=== PATIENT | female | born 1960 | race Caucasian/White ===

== ENCOUNTER 2017-04-01 18:08 | Emergency (ER) | payer SELFPAY ==
[~2017-04-01] VITALS: Ht 157.5 cm; Wt 70.9 kg
[2017-04-01 18:15] VITALS: BP 177/103; PULSE 82; RESP 15; TEMP 99.2; O2SAT 96
[2017-04-01 19:00] VITALS: BP 149/89; PULSE 76; RESP 16; O2SAT 97
[2017-04-01] MEDS ORDERED: HYDR-3533 PO (19:50)
[2017-04-01] MEDS ORDERED: CYCL1TAB29 PO (19:50)
[2017-04-01] MEDS ORDERED: IBUP400T20 PO (19:50)
--- NOTE | 2017-04-01 19:50 | PD ---
HPI Chief Complaint: Musculoskeletal Complaint Time Seen by Provider: 19:22 Travel History International Travel<30 days: No Contact w/Intl Traveler<30days: No Traveled to known affect area: No History of Present Illness HPI The patient is a 56-year-old female who complains of pain starting around the left buttocks and radiating down to the left lower leg. On Thursday she was pulling carpet. Thursday she woke up and had severe back pain radiating down her left leg. She denies any numbness or weakness of the left leg. She denies any chest pain or shortness of breath. Because the left calf had pain she was worried about a blood clot. She denies any bladder or bowel dysfunction. She has no tenderness over the left calf. There is no swelling over the left calf. She has never had a blood clot before. She particularly has pain when she sits in a chair putting pressure on the left buttocks. She states she does have muscle spasm and has been taking ibuprofen without relief. The pain as a burning pain and a 9/10 in the left buttocks and down the left leg. [facility] Past Medical History Medical History: Denies Significant Hx Tetanus Vaccination: > 5 Years Influenza Vaccination: No ?: Not LMP: [employer] Past Surgical History Hysterectomy: Yes Social History Alcohol Use: Yes Tobacco Use: Yes Substance Use: No Allergies-Medications (Allergen,Severity, Reaction): Coded Allergies: Cipro (Verified Allergy, Unknown, 04/01/17) Reported Meds & Prescriptions Reported Meds & Active Scripts Active No Active Prescriptions or Reported Medications Review of Systems Except as stated in HPI: all other systems reviewed are Neg Physical Exam Narrative GENERAL: The patient is alert, oriented 3 in moderate apparent distress with her left calf pain. Her vital signs show blood pressure 177/103 but otherwise normal. SKIN: Focused skin assessment warm/dry. HEAD: Atraumatic. Normocephalic. EYES: Pupils equal and round. No scleral icterus. No injection or drainage. ENT: No nasal bleeding or discharge. Mucous membranes pink and moist. NECK: Trachea midline. No JVD. CARDIOVASCULAR: Regular rate and rhythm. No murmur appreciated. RESPIRATORY: No accessory muscle use. Clear to auscultation. Breath sounds equal bilaterally. GASTROINTESTINAL: Abdomen soft, non-tender, nondistended. Hepatic and splenic margins not palpable. MUSCULOSKELETAL: No obvious deformities. No clubbing. No cyanosis. No edema. There is tenderness to direct palpation around the sciatic nerve in the left buttocks near the sacrum on the left. I cannot reproduce the radiation of pain by putting pressure on this area. Straight leg raising is normal and deep tendon reflexes are +2 bilaterally both patella and Achilles and pinprick is normal. No swelling is noted in the calf, Homans sign is negative and no cord is palpated in the calf. There is no tenderness in the calf. NEUROLOGICAL: Awake and alert. No obvious cranial nerve deficits. Motor grossly within normal limits. Normal speech. PSYCHIATRIC: Appropriate mood and affect; insight and judgment normal. Data Data Last Documented VS Vital Signs Date Time Temp Pulse Resp B/P Pulse Ox O2 Delivery O2 Flow Rate FiO2 04/01/17 19:00 76 16 149/89 97 Room Air 04/01/17 18:15 99.2 [facility] Medical Decision Making Medical Screen Exam Complete: Yes Emergency Medical Condition: Yes Medical Record Reviewed: Yes Differential Diagnosis Sciatic nerve pain, DVTunlikely, herniated nucleus pulposus Narrative Course The patient appears to have sciatic nerve pain. She will be prescribed Motrin 600 mg 3 times daily, Flexeril and Lortab 5 for pain. She should not drink alcohol or drive on the Flexeril or Lortab 5. She should follow-up with her primary care physician next week. Diagnosis Primary Impression: Left sciatic nerve pain Med/Other Pt SpecificInfo: Prescription(s) given Scripts Hydrocodone-Acetaminophen (Lortab)5-325 Mg Tab1 Tab PO Q4H PRN (PAIN) #30 TAB Ref 0 Prov:Rafael Thibodeaux MD 04/01/17 Cyclobenzaprine (Flexeril)10 Mg Tab10 Mg PO TID #30 TAB Ref 0 Prov:Rafael Thibodeaux MD 04/01/17 Ibuprofen 400 Mg [id number] Mg PO TID #44 TAB Ref 0 Prov:Rafael Thibodeaux MD 04/01/17 Disposition: 01 DISCHARGE HOME Condition: Stable Rafael Thibodeaux MD April 01, 2017 19:50
[2017-04-01] MEDS ORDERED: KETOROLAC TROMETHAMINE 60 MG/2 ML (IM) VIAL IM ONE (20:00)
[2017-04-01] MEDS ORDERED: ORPHENADRINE INJ 60 MG/2 ML AMP IM ONE (20:00)
[2017-04-01 20:02] VITALS: BP 169/94; PULSE 74; RESP 16; O2SAT 95
== END 2017-04-01 20:37 | disposition home or self-care (01) ==
LOC: PHED 18:08
DX: M54.32 Sciatica, left side (principal); Z72.0 Tobacco use
CPT/HCPCS: 96372; 99284; J1885; J2360

== ENCOUNTER 2017-07-26 10:00 | Inpatient (IN) | payer OTHER ==
[2017-07-26] VITALS (10 sets, daily range): BP systolic 163–202; BP diastolic 88–104; PULSE 65–78; RESP 16–22; TEMP 97.4–98.9; O2SAT 95–97
[~2017-07-26 10:00] MED LIST: CYCL1TAB29 PO; HYDR-3533 PO; IBUP400T20 PO
[2017-07-26] MEDS ORDERED: SODIUM CHLOR 0.9% 1000 ML INJ 1,000 ML IV ONE (10:14)
[2017-07-26] MEDS ORDERED: SODIUM CHLORIDE 0.9% FLUSH 10 ML FLUSH IVF PRN (10:15)
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
[2017-07-26 10:31] LABS: BLOOD, URINE NEG (NEG); GLUCOSE,URINE NEG (NEG); KETONE, URINE NEG (NEG); NITRITE,URINE NEG (NEG)
[2017-07-26 10:32] LABS: METHOD OF COLLECTION CATH; URINE COLOR STRAW (YELLW/STRAW)
[2017-07-26 10:33] LABS: AUTOMATED NEUTROPHIL # 3.5 TH/MM3 (1.8-7.7); BASOPHIL # 0.1 TH/MM3 (0-0.2); EOSINOPHIL # 0.3 TH/MM3 (0-0.4); EOSINOPHIL % 5.1 % (0.0-4.0); HEMO FLAGS DIFF FINAL; LYMPHOCYTE # 1.4 TH/MM3 (1.0-4.8); MEAN CELL VOLUME 97.4 FL (80.0-100.0); MEAN CORPUSCULAR HEMOGLOBIN 32.3 PG (27.0-34.0); MEAN CORPUSCULAR HGB CONC 33.2 % (32.0-36.0); MONO % 6.2 % (0.0-8.0); NEUT % 62.7 % (16.0-70.0); PLATELET COUNT 171 TH/MM3 (150-450); RED BLOOD COUNT 4.32 MIL/MM3 (4.00-5.30); RED CELL DISTRIBUTION WIDTH 11.6 % (11.6-17.2); WHITE BLOOD COUNT 5.6 TH/MM3 (4.0-11.0)
[2017-07-26 10:35] LABS: SQUAMOUS EPITHELIAL CELL URINE 0-5 /hpf (0-5)
[2017-07-26 10:37] LABS: CHLORIDE 103 MEQ/L (98-107); POTASSIUM 3.5 MEQ/L (3.5-5.1); SODIUM (NA) 139 MEQ/L (136-145)
[2017-07-26 10:41] LABS: ANION GAP 13 MEQ/L (5-15); APTT (PATIENT) 27.4 SEC (24.3-30.1); BICARBONATE 23.4 MEQ/L (21.0-32.0); BLOOD UREA NITROGEN 5 MG/DL (7-18); MAGNESIUM 1.9 MG/DL (1.5-2.5); PROTHROMBIN TIME - PATIENT 11.6 SEC (9.8-11.6)
[2017-07-26 10:43] LABS: ALCOHOL 56 MG/DL (0-5)
[2017-07-26 10:44] LABS: GLOMERULAR FILTRATION RATE 159 ML/MIN (>89)
[2017-07-26 10:45] LABS: AST (GOT) 86 U/L (15-37); TOTAL BILIRUBIN ADULT 0.6 MG/DL (0.2-1.0)
[2017-07-26 10:47] LABS: ALKALINE PHOSPHATASE 68 U/L (45-117); CREATINE KINASE 268 U/L (26-192)
--- NOTE | 2017-07-26 10:47 | RADRPT ---
EXAM DATE/TIME: 07/26/2017 10:22 [facility] COMPARISON: No previous studies available for comparison. INDICATIONS : Left upper chest pain from yesterday am, also has numbness and tingling left side arm, hand fingers MEDICAL HISTORY : None. SURGICAL HISTORY : None. ENCOUNTER: Initial ACUITY: 2 days PAIN SCORE: 3/10 LOCATION: Left upper chest FINDINGS: A single view of the chest demonstrates the lungs to be symmetrically aerated without evidence of mas s, infiltrate or effusion. The cardiomediastinal contours are unremarkable. Osseous structures are intact. CONCLUSION: No acute disease. Dami Vo MD on July 26, 2017 at 10:45 Board Certified Radiologist. This report was verified electronically.
[2017-07-26 10:57] LABS: ALT (GPT) 79 U/L (10-53)
[2017-07-26 10:58] LABS: CKMB 3.5 NG/ML (0.5-3.6)
--- NOTE | 2017-07-26 11:28 | RADRPT ---
EXAM DATE/TIME: 07/26/2017 10:31 [facility] COMPARISON: No previous studies available for comparison. INDICATIONS : Generalized weakness. Left upper and lower extremity numbness since yesterday. RADIATION DOSE: 59.20 CTDIvol (mGy) MEDICAL HISTORY : None SURGICAL HISTORY : Hysterectomy. ENCOUNTER: Initial ACUITY: 2 days PAIN SCALE: 0/10 LOCATION: cranial TECHNIQUE: Multiple contiguous axial images were obtained of the head. Using automated exposure control and adj ustment of the mA and/or kV according to patient size, radiation dose was kept as low as reasonably a chievable to obtain optimal diagnostic quality images. DICOM format image data is available electro nically for review and comparison. FINDINGS: CEREBRUM: The ventricles are normal for age. There is low density at the right anterior limb of the internal ca psule and the right centrum semiovale white matter. No evidence of midline shift, mass lesion, or hem orrhage. No extra-axial fluid collections are seen. POSTERIOR FOSSA: The cerebellum and brainstem are intact. The 4th ventricle is midline. The cerebellopontine angle i s unremarkable. EXTRACRANIAL: The visualized portion of the orbits is intact. SKULL: The calvaria is intact. No evidence of skull fracture. CONCLUSION: Small areas of low density at the right anterior limb of the internal capsule and right centrum semio thor. Recent small infarcts could have this appearance. No hemorrhage or significant mass effect is s een. Dami Vo MD on July 26, 2017 at 11:23 Board Certified Radiologist. This report was verified electronically.
[2017-07-26] MEDS ORDERED: ASPIRIN 325 MG TAB PO ONE (11:45)
--- NOTE | 2017-07-26 12:40 | EKG ---
Date Performed: 07/26/2017 Time Performed: 10:09:22 PTAGE: 57 years EKG: Sinus rhythm NORMAL ECG NO PREVIOUS TRACING DOCTOR: Denilson Page Interpretating Date/Time 07/26/2017 12:39:18
[2017-07-26] MEDS ORDERED: NITROGLYCERIN 0.4 MG SL 25 TABS/BTL SL PRN (16:00)
[2017-07-26] MEDS ORDERED: ACETAMINOPHEN 500 MG CPLT PO PRN (16:00)
[2017-07-26] MEDS ORDERED: MORPHINE SULFATE 4 MG/ML INJ IV PUSH PRN (16:00)
[2017-07-26] MEDS ORDERED: DEXTROSE 50% IN WATER 50 ML VIAL(D50) IV PUSH PRN (16:00)
[2017-07-26] MEDS ORDERED: ENALAPRILAT 1.25 MG/ML VIAL IV PRN (16:00)
[2017-07-26] MEDS ORDERED: SODIUM CHLORIDE 0.9% FLUSH 10 ML FLUSH IV FLUSH PRN (16:00)
[2017-07-26] MEDS ORDERED: ACETAMINOPHEN/HYDROcodone 325 MG/7.5 MG TAB PO PRN (16:00)
[2017-07-26] MEDS ORDERED: GLUCAGON 1 MG/ML VIAL OTHER PRN (16:00)
[2017-07-26] MEDS: INSULIN ASPART SUPPLEMENTAL SCALE SQ SCH ×2 (17:00→21:00)
[2017-07-26 17:15] LABS: CREATINE KINASE 209 U/L (26-192)
[2017-07-26 17:27] LABS: CKMB 2.5 NG/ML (0.5-3.6)
--- NOTE | 2017-07-26 18:02 | RADRPT ---
EXAM DATE/TIME: 07/26/2017 17:24 [facility] COMPARISON: No previous studies available for comparison. INDICATIONS : Cerebrovascular accident, left sided weakness. MEDICAL HISTORY : Left sided weakness. SURGICAL HISTORY : Hysterectomy. ENCOUNTER: Initial ACUITY: 1 day PAIN SCORE: 0/10 LOCATION: Bilateral neck PEAK SYSTOLIC VELOCITIES (cm/sec): ICA/CCA RATIO: Right: 1.2 Left: 1.2 ICA: Right: 116 Left: 134 CCA: Right: 93 Left: 110 ECA: Right: 97 Left: 80 VERTEBRAL: Right: 48 antegrade Left: 80 antegrade Elevated flow velocities and ICA/CCA ratios have been found to correlate with increased degrees of vessel stenosis, calculated as percentage of diameter relative to a normal segment of distal ICA/CCA FINDINGS: RIGHT CAROTID: Mild eccentric calcified plaque with resultant mild, less than 50%, stenosis. LEFT CAROTID: Mild calcified plaque with resultant mild, less than 50%, stenosis. VERTEBRAL ARTERIES: Antegrade flow is seen in both vertebral arteries. MISCELLANEOUS: None. CONCLUSION: 1. Mild bilateral carotid plaque with resultant mild, less than 50%, stenosis. 2. Antegrade vertebral artery flow bilaterally. Toribio Crisostomo MD on July 26, 2017 at 17:58 Board Certified Radiologist. This report was verified electronically.
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
[2017-07-26] MEDS: LISINOPRIL 5 MG TAB PO SCH (18:43)
[2017-07-26] MEDS: PANTOPRAZOLE SOD 40 MG DELAYED RELEASE TAB PO SCH (18:43)
[2017-07-26] MEDS: ALPRAZolam 0.25 MG TAB PO PRN (18:43)
--- NOTE | 2017-07-26 19:12 | EKG ---
Date Performed: 07/26/2017 Time Performed: 16:22:37 PTAGE: 57 years EKG: Sinus rhythm NORMAL ECG PREVIOUS TRACING : 07/26/2017 10.09 No significant change from previous tracing noted. DOCTOR: Denilson Page Interpretating Date/Time 07/26/2017 19:11:34
[2017-07-26] MEDS: SODIUM CHLORIDE 0.9% FLUSH 10 ML FLUSH IV FLUSH SCH (21:00)
[2017-07-26] MEDS: METOPROLOL TARTRATE 25 MG TAB PO SCH (21:35)
[2017-07-26] MEDS: ATORVASTATIN 10 MG TAB PO SCH (21:35)
[2017-07-26 23:05] LABS: CREATINE KINASE 160 U/L (26-192)
[2017-07-26] MEDS: TEMAZEPAM 15 MG CAP PO PRN (23:37)
[2017-07-27] VITALS (9 sets, daily range): BP systolic 139–162; BP diastolic 88–105; PULSE 67–77; RESP 16–20; TEMP 95.6–99.5; O2SAT 95–98
--- NOTE | 2017-07-27 06:49 | EKG ---
Date Performed: 07/26/2017 Time Performed: 22:05:36 PTAGE: 57 years EKG: Sinus rhythm SEPTAL MYOCARDIAL INFARCTION ABNORMAL ECG PREVIOUS TRACING : 07/26/2017 16.22 No significant change from previous tracing noted. DOCTOR: Denilson Page Interpretating Date/Time 07/27/2017 06:48:43
[2017-07-27 07:07] LABS: BASOPHIL # 0.1 TH/MM3 (0-0.2); EOSINOPHIL # 0.3 TH/MM3 (0-0.4); EOSINOPHIL % 4.5 % (0.0-4.0); HEMATOCRIT 38.9 % (35.0-46.0); HEMO FLAGS DIFF FINAL; LYMPH % 25.2 % (9.0-44.0); LYMPHOCYTE # 1.6 TH/MM3 (1.0-4.8); MEAN CORPUSCULAR HEMOGLOBIN 33.3 PG (27.0-34.0); MEAN CORPUSCULAR HGB CONC 34.7 % (32.0-36.0); MONO % 7.1 % (0.0-8.0); NEUT % 62.2 % (16.0-70.0); PLATELET COUNT 155 TH/MM3 (150-450); RED BLOOD COUNT 4.06 MIL/MM3 (4.00-5.30); RED CELL DISTRIBUTION WIDTH 11.4 % (11.6-17.2); WHITE BLOOD COUNT 6.5 TH/MM3 (4.0-11.0)
[2017-07-27 07:27] LABS: POTASSIUM 3.8 MEQ/L (3.5-5.1)
[2017-07-27 07:32] LABS: BICARBONATE 26.2 MEQ/L (21.0-32.0)
[2017-07-27] MEDS: INSULIN ASPART SUPPLEMENTAL SCALE SQ SCH ×4 (08:00→21:00)
[2017-07-27] MEDS: SODIUM CHLORIDE 0.9% FLUSH 10 ML FLUSH IV FLUSH SCH ×2 (08:24→21:09)
[2017-07-27 09:20] LABS: HDL CHOLESTEROL 44.9 MG/DL (40.0-60.0)
[2017-07-27] MEDS: LISINOPRIL 5 MG TAB PO SCH (09:53)
[2017-07-27] MEDS: ASPIRIN 325 MG TAB PO SCH (09:53)
[2017-07-27] MEDS: PANTOPRAZOLE SOD 40 MG DELAYED RELEASE TAB PO SCH (09:53)
[2017-07-27] MEDS: METOPROLOL TARTRATE 25 MG TAB PO SCH ×2 (09:53→21:10)
[2017-07-27] MEDS ORDERED: INFLUENZA VIRUS VACCINE (QUADRIVALENT) 0.5 ML SYR IM ONE (10:00)
[2017-07-27] MEDS ORDERED: PNEUMOCOCCAL POLYVALENT INJ 25 MCG/0.5 ML SYR IM ONE (10:00)
[2017-07-27] MEDS ORDERED: REGADENOSON INJ 0.4 MG/5 ML SYR IV ONE (10:06)
--- NOTE | 2017-07-27 11:25 | OTSOAPIP ---
TIME SESSION COMPLETED: 1030 AM TREATMENT TIME: 0 MINS. RECEIVED OCCUPATIONAL THERAPY ORDERS. ATTEMPTED TO SEE PATIENT, HOWEVER UPON ARRIVAL PATIENT WAS RECENTLY OFF FLOOR FOR STRESS TEST AND MRI. SPOKE WITH EDGAR ALEMAN WHO REPORTS PATIENT HAS BEEN UP AND AMBULATING INDEPENDENTLY, REPORTS ALL SYMPTOMS TO BE RESOLVED. WILL FOLLOW UP WITH PATIENT FOR EVALUATION IF PATIENT REMAINS ADMITTED IN HOSPITAL TOMORROW. INTERDISCIPLINARY COMMUNICATION: REVIEWED ELECTRONIC MEDICAL RECORD, SPOKE WITH RN Therapist: Monie Flores, OTR/L Signature on file
--- NOTE | 2017-07-27 11:32 | RADRPT ---
EXAM DATE/TIME: 07/27/2017 10:13 [facility] COMPARISON: No previous studies available for comparison. INDICATIONS : Chest pain with left arm and leg tingling and left sided weakness. Angina. DOSE: 27.2 mCi Tc99m Myoview at stress. 8.6 mCi Tc99m Myoview at rest. 0.4 mg Lexiscan STRESS SYMPTOMS: Facial flush and nausea. EJECTION FRACTION: 57% MEDICAL HISTORY : None SURGICAL HISTORY : Hysterectomy. ENCOUNTER: Initial ACUITY: 2 days PAIN SCALE: 6/10 LOCATION: chest TECHNIQUE: The patient underwent pharmacologic stress with infusion of prescribed dose. Continuous ECG tracing was monitored during stress. Gated SPECT imaging was performed after stress and conventional SPECT i maging was performed at rest. The examination was performed on a SPECT/CT scanner, both attenuation and non-corrected datasets were reviewed. FINDINGS: The best perfused myocardium is the anterior lateral wall followed by the septum. There is no redist ribution suggest ischemia. There are no fixed defects to suggest infarction. Ejection fraction is 57% with normal wall motion. CONCLUSION: Negative for stress-induced ischemia. RISK CATEGORY: Low (<1% Annual Mortality Rate) Maciej Gomez MD FACR on July 27, 2017 at 11:30 Board Certified Radiologist. This report was verified electronically.
--- NOTE | 2017-07-27 14:07 | TR ---
Date Performed: 07/27/2017 Time Performed: 10:37:30 DOCTOR: Eh Fletcher DRUG LIST: CLINICAL HISTORY: REASON FOR TEST: Chest pain REASON FOR ENDING: OBSERVATION: CONCLUSION: Lexiscan stress test was performed under standard four minute protocol. Radionuclid e was injected one minute prior to ending the test. No electrocardiographic abormalities were present to suggest ischemia. Nuclear imaging and interpretation are pending. COMMENTS:
[2017-07-27 15:10] LABS: HEMOGLOBIN A1a 1.1 %; HEMOGLOBIN A1b 1.1 %; HEMOGLOBIN Ao 86.8 %; HEMOGLOBIN F 0.3 %; HEMOGLOBIN LA1C 1.8 %; HEMOGLOBIN P3 3.3 %
--- NOTE | 2017-07-27 15:38 | RADRPT ---
EXAM DATE/TIME: 07/27/2017 15:02 [facility] COMPARISON: No previous studies available for comparison. INDICATIONS : CVA. Left sided numbness. MEDICAL HISTORY : Hypertension. SURGICAL HISTORY : Uterine prolasp. ENCOUNTER: Initial ACUITY: 2 day PAIN SCORE: 4/10 LOCATION: Bilateral cranial TECHNIQUE: Multiplanar, multisequence MRI of the brain was performed without contrast. FINDINGS: CEREBRUM: Scattered periventricular white matter changes are evident with the single 1 cm focally restricted di ffusion subacute in age in the right basalganglia posterior limb internal capsule. There is no paren chymal hemorrhage. There are no extra-axial fluid collections appreciated. DIFFUSION IMAGING: Single subacute focus of restricted diffusion posterior limb internal capsule right side POSTERIOR FOSSA: The cerebellum and brainstem are intact. There is small focal area of high signal intensity peduncle right side subacute in nature but similar to the findings in the supratentorial brain. The 4th vent ricle is midline. The cerebellopontine angle is unremarkable. The cerebellar tonsils are normal in p osition. EXTRACRANIAL: The visualized portions of the orbits and paranasal sinuses are unremarkable. CONCLUSION: The ventricular white matter changes consisting of small focal areas of high signal intensity without hemorrhage. Demyelinating process could have this similar appearance. Maciej Gomez MD FACR on July 27, 2017 at 15:34 Board Certified Radiologist. This report was verified electronically.
--- NOTE | 2017-07-27 15:55 | RADRPT ---
EXAM DATE/TIME: 07/27/2017 15:02 [facility] COMPARISON: No previous studies available for comparison. INDICATIONS : Stroke. Left sided numbness. MEDICAL HISTORY : Hypertension. SURGICAL HISTORY : Uterine Prolasp. ENCOUNTER: Initial ACUITY: 2 day PAIN SCORE: 3/10 LOCATION: Bilateral distal Please note a normal MRA of the brain does not entirely exclude the possibility of a small aneurysm, nor the possibility of distal intracranial vessel disease. TECHNIQUE: 3D time of flight MRA was performed. Source images, multiplanar STS MIP, and 3D volume MIP reconstru ctions were reviewed. FINDINGS: There is excellent visualization of the major intracranial arteries out to the second-order branch ve ssels. There is no evidence for aneurysm, vessel truncation or stenosis, and no evidence for vascula r malformation. The left posterior cerebral artery arises from the anterior circulation, are normal. CONCLUSION: Negative for major branch vessel occlusion.. Maciej Gomez MD FACR on July 27, 2017 at 15:53 Board Certified Radiologist. This report was verified electronically.
--- NOTE | 2017-07-27 16:20 | ECHRPT ---
Indication: cva/tia CONCLUSIONS Normal left ventricular size. Wall thickness is normal. The left ventricular systolic function is normal with an estimated ejection fraction in the range of 60-65%. Thickened atrial septum is noted with morphological features most consistent with a lipomatous atria l septum. Mild mitral valve regurgitation. Mild aortic valve regurgitation. Aortic valve sclerosis is present. Mild pulmonary valve regurgitation. BP: / HR: Rhythm: Sinus MEASUREMENTS (Male / Female) Normal Values Technical Quality:Good 2D ECHO LV Diastolic Diameter PLAX 4.7 cm 4.2 - 5.9 / 3.9 - 5.3 cm LV Systolic Diameter PLAX 3.3 cm IVS Diastolic Thickness 0.9 cm 0.6 - 1.0 / 0.6 - 0.9 cm LVPW Diastolic Thickness 0.7 cm 0.6 - 1.0 / 0.6 - 0.9 cm LV Relative Wall Thickness 0.3 RV Internal Dim ED PLAX 2.2 cm M-MODE Aortic Root Diameter MM 3.0 cm AV Cusp Separation MM 1.9 cm DOPPLER AV Peak Velocity 180.0 cm/s AV Peak Gradient 13.0 mmHg MR Peak Velocity 589.0 cm/s MR Peak Gradient 138.8 mmHg Mitral E Point Velocity 86.4 cm/s Mitral A Point Velocity 87.1 cm/s Mitral E to A Ratio 1.0 TR Peak Velocity 242.0 cm/s TR Peak Gradient 23.4 mmHg FINDINGS LEFT VENTRICLE Normal left ventricular size. Wall thickness is normal. RIGHT VENTRICLE Normal right ventricular size and systolic function. LEFT ATRIUM The left atrial size is normal. RIGHT ATRIUM The right atrial size is normal. ATRIAL SEPTUM Thickened atrial septum is noted with morphological features most consistent with a lipomatous atria l septum. AORTA The aortic root and proximal ascending aorta are normal in size on limited imaging. MITRAL VALVE Mild mitral valve regurgitation. AORTIC VALVE Mild aortic valve regurgitation. Aortic valve sclerosis is present. TRICUSPID VALVE Structurally normal tricuspid valve. No tricuspid valve stenosis or regurgitation. PULMONARY VALVE Mild pulmonary valve regurgitation. VESSELS The inferior vena cava is normal in size. PERICARDIUM No pericardial effusion. El Snow MD, FACC (Electronically Signed) Final Date:27 July 2017 16:19
--- NOTE | 2017-07-27 16:34 | HHI.PR ---
Subjective Remarks Deferred entry - patient seen earlier at 11:30 am BP noted to be elevated denies cp/sob feels hungry Objective Vitals Vital Signs Date Time Temp Pulse Resp B/P (MAP) Pulse Ox O2 Delivery O2 Flow Rate FiO2 07/27/17 16:00 69 07/27/17 12:00 95.6 72 18 155/105 (122) 95 07/27/17 08:25 97.6 67 16 161/97 (118) 98 07/27/17 08:00 95 21 07/27/17 07:00 77 07/27/17 04:00 97.2 74 18 139/88 (105) 97 07/27/17 00:00 99.5 74 20 153/99 (117) 96 07/27/17 00:00 70 07/26/17 23:22 95 21 07/26/17 22:19 95 21 07/26/17 20:00 98.0 75 18 163/96 (118) 95 07/26/17 20:00 75 I/O 07/26/17 07/26/17 07/26/17 07/27/17 07/27/17 07/27/17 07:00 15:00 23:00 07:00 15:00 23:00 Intake Total 580 ml 840 ml 1000 ml Balance 580 ml 840 ml 1000 ml Intake Oral 580 ml 840 ml IV Total 1000 ml # Voids 5 2 # Bowel Movements 0 0 Result Diagram: 07/27/17 0645 07/27/17 0645 Imaging Last Impressions Myocardial Perfusion Scan Nuc Med 07/27/17 0600 Signed Impressions: Service Date/Time: Thursday, July 27, 2017 10:13 - CONCLUSION: Negative for stress-induced ischemia. RISK CATEGORY: Low (<1%% Annual Mortality Rate) Maciej Gomez MD FACR Head Magnetic Resonance Angiography 07/27/17 0000 Signed Impressions: Service Date/Time: Thursday, July 27, 2017 15:02 - CONCLUSION: Negative for major branch vessel occlusion.. Maciej Gomez MD FACR Brain MRI 07/27/17 0000 Signed Impressions: Service Date/Time: Thursday, July 27, 2017 15:02 - CONCLUSION: The ventricular white matter changes consisting of small focal areas of high signal intensity without hemorrhage. Demyelinating process could have this similar appearance. Maciej Gomez MD FACR Chest X-Ray 07/26/17 1007 Signed Impressions: Service Date/Time: Wednesday, July 26, 2017 10:22 - CONCLUSION: No acute disease. Dami Vo MD Head CT 07/26/17 0000 Signed Impressions: Service Date/Time: Wednesday, July 26, 2017 10:31 - CONCLUSION: Small areas of low density at the right anterior limb of the internal capsule and right centrum semiovale. Recent small infarcts could have this appearance. No hemorrhage or significant mass effect is seen. Dami Vo MD Carotid Artery Ultrasound 07/26/17 0000 Signed Impressions: Service Date/Time: Wednesday, July 26, 2017 17:24 - CONCLUSION: 1. Mild bilateral carotid plaque with resultant mild, less than 50%%, stenosis. 2. Antegrade vertebral artery flow bilaterally. Toribio Crisostomo MD Objective Remarks AAOx3 NAD S1S2 RRR, no MRG soft abdomen, non tender no edema in extremities Procedures None Medications and IVs Current Medications Medications (Trade) Dose Ordered Sig/Jalyn Route Start Time Stop Time Status Last Admin (NS Flush) 2 ml UNSCH PRN IVF 07/26/17 10:15 (NS Flush) 2 ml BID IV FLUSH 07/26/17 21:00 07/26/17 21:00 (NS Flush) 2 ml UNSCH PRN IV FLUSH 07/26/17 16:00 (Aspirin) 325 mg DAILY PO 07/27/17 09:00 07/27/17 09:53 (Nitrostat Sl) 0.4 mg Q5M PRN SL 07/26/17 16:00 (Tylenol) 500 mg Q4H PRN PO 07/26/17 16:00 ([place] 7.5-325 Mg) 1 tab Q4H PRN PO 07/26/17 16:00 (Morphine Inj) 2 mg Q5M PRN IV PUSH 07/26/17 16:00 (Protonix) 40 mg DAILY PO 07/26/17 16:00 07/27/17 09:53 (Restoril) 15 mg HS PRN PO 07/26/17 21:00 07/26/17 23:37 (Xanax) 0.25 mg TID PRN PO 07/26/17 16:00 07/26/17 18:43 (Vasotec Inj) 1.25 mg Q4H PRN IV 07/26/17 16:00 (Lipitor) 10 mg HS PO 07/26/17 21:00 07/26/17 21:35 (NovoLOG SUPPLEMENTAL SCALE) 1 ACHS SQ 07/26/17 17:00 (D50w (Vial) Inj) 50 ml UNSCH PRN IV PUSH 07/26/17 16:00 (Glucagon Inj) 1 mg UNSCH PRN OTHER 07/26/17 16:00 (Prinivil) 5 mg DAILY PO 07/26/17 16:00 07/27/17 09:53 (Lopressor) 25 mg BID PO 07/27/17 21:00 A/P Problem List: (1) Chest pain ICD Code: R07.9 - Chest pain, unspecified Status: Acute (2) Stroke ICD Code: I63.9 - Cerebral infarction, unspecified Status: Acute (3) Elevated blood pressure reading ICD Code: R03.0 - Elevated blood-pressure reading, without diagnosis of hypertension Status: Acute (4) Numbness and tingling of left arm and leg ICD Code: R20.0 - Anesthesia of skin; R20.2 - Paresthesia of skin Status: Acute (5) Rhabdomyolysis ICD Code: M62.82 - Rhabdomyolysis (6) Abnormal MRI of head ICD Code: R93.0 - Abnormal findings on diagnostic imaging of skull and head, not elsewhere classified (7) CVA (cerebral vascular accident) ICD Code: I63.9 - Cerebral infarction, unspecified Assessment and Plan Chest pain, atypical Patient with increased risk factors to include elevated blood pressure, age, family history of heart disease Continue trending cardiac enzymes and EKGs rule out any acute coronary event Pursue chemical stress test in the a.m. rule out any acute abnormality Start patient on aspirin, metoprolol 12.5 mg twice daily, nitroglycerin as needed, lisinopril 5 mg daily, atorvastatin. Obtain lipid panel for evaluation 07/27 Nuclear stress test negative for stress induced ischemia. CVA Neurological symptoms with headache, numbness, paresthesia of the left side with CT finding of possible recent small infarcts We'll pursue full neurological workup at this time MRI of the brain shows ventricular white matter changes consistent with small focal areas of high signal intensity with a hemorrhage. Demyelinating process could have this appearance. MRI of the head was negative for major branch vessel occlusion. Carotid ultrasound is negative Carotid ultrasound Echocardiogram showed a normal left ventricular size and ejection fraction of 60-65%. Lipomatous atrial septum. Mild mitral valve regurgitation, mild aortic valve regurgitation, mild pulmonary valve regurgitation. Continue monitor telemetry - no evidence registered Patient seen by speech therapy. Recommended regular diet with thin liquids. Patient will not need outpatient speech therapy. PT elevated patient, no PT recommended upon discharge. OT evaluation pending Consult neurology. Given abnormal MRI description and the possibility of demyelinating process I will obtain an MRI of the spine. Continue full dose aspirin, statin. Uncontrolled hypertension. Could be secondary to remote CVA Will try to remain permissive at this time, however because of the acute chest pain the patient was started on medications for cardioprotection. 07/27 I will increase the dose to 50 mg by mouth twice a day Hyperglycemia with family history of diabetes Obtain hemoglobin A1cn - pending Accu-Cheks with sliding scale insulin Blood sugar seems to be stable. Rhabdomyolysis CK elevated at 268, down to 160 after IV fluid administration. Hyperlipidemia Lipid profile showed a total cholesterol 228 and an LDL cholesterol 157, HDL cholesterol 44.9 and triglycerides 129. Patient has an LDL cholesterol of more than 157. Patient started on Lipitor. Continue. DVT prevention sequential compression devices Discharge Planning Pending neurology evaluation, MRI of the cervical, thoracic and lumbar spine. Problem Qualifiers (1) Chest pain: Qualified Codes: R07.9 - Chest pain, unspecified (2) Stroke: Qualified Codes: I63.9 - Cerebral infarction, unspecified Damion Kiser MD Jul 27, 2017 16:34
[2017-07-27] MEDS: ATORVASTATIN 10 MG TAB PO SCH (21:10)
[2017-07-27] MEDS: TEMAZEPAM 15 MG CAP PO PRN (22:19)
[2017-07-28] VITALS (7 sets, daily range): BP systolic 142–174; BP diastolic 92–109; PULSE 66–75; RESP 16–20; TEMP 97.4–99.3; O2SAT 93–98
[2017-07-28] MEDS: INSULIN ASPART SUPPLEMENTAL SCALE SQ SCH ×4 (08:00→21:00)
[2017-07-28] MEDS: LISINOPRIL 5 MG TAB PO SCH (09:23)
[2017-07-28] MEDS: METOPROLOL TARTRATE 25 MG TAB PO SCH (09:23)
[2017-07-28] MEDS: PANTOPRAZOLE SOD 40 MG DELAYED RELEASE TAB PO SCH (09:23)
[2017-07-28] MEDS: SODIUM CHLORIDE 0.9% FLUSH 10 ML FLUSH IV FLUSH SCH ×2 (09:23→21:40)
[2017-07-28] MEDS: ASPIRIN 325 MG TAB PO SCH (10:09)
--- NOTE | 2017-07-28 14:46 | PD.CONS ---
History of Present Illness Service Neurology Consult Requested By medical Reason for Consult neuro change Primary Care Physician No Primary Care Physician History of Present Illness 57-year-old female admitted for left sided weakness, not feeling well. has noted her bp to be high for some time now. checks it at [facility]. no insurance. does not have a pcp. not on any medications. no vision loss, no head/neck trauma. gait stable. strength improved. has had tingling in her legs off/on. no spinal pain. no b/b incontinence. drinks 1 bottle of wine/day and smokes mj bit not tobacco. feels good at present. no hx of afib/dvt/p.e./lupus/blodd clots. states in her 30's she had joint pain and went to a hospital in [place] and was told she may have "plaques in her brain". no further studies done. Review of Systems as above Past Family Social History Past Medical History No documented medical history Past Surgical History Patient had uterine prolapse surgery Reported Medications No outpatient medications Allergies: Coded Allergies: ciprofloxacin (Unverified Allergy, Unknown, 07/26/17) Family History Father at age 44 from myocardial infarction. Mother alive at 81 with diabetes and stroke Social History Patient admits to being alcoholic she drinks a bottle of wine a day. She also uses marijuana daily. Denies any tobacco use Review of Systems All other ROS: ROS reviewed as documented in chart Past Family Social History Allergies: Coded Allergies: ciprofloxacin (Unverified Allergy, Unknown, 07/26/17) Active Ordered Medications Current Medications Medications (Trade) Dose Ordered Sig/Jalyn Route Start Time Stop Time Status Last Admin (NS Flush) 2 ml UNSCH PRN IVF 07/26/17 10:15 (NS Flush) 2 ml BID IV FLUSH 07/26/17 21:00 07/28/17 09:23 (NS Flush) 2 ml UNSCH PRN IV FLUSH 07/26/17 16:00 (Aspirin) 325 mg DAILY PO 07/27/17 09:00 07/28/17 10:09 (Nitrostat Sl) 0.4 mg Q5M PRN SL 07/26/17 16:00 (Tylenol) 500 mg Q4H PRN PO 07/26/17 16:00 ([place] 7.5-325 Mg) 1 tab Q4H PRN PO 07/26/17 16:00 (Morphine Inj) 2 mg Q5M PRN IV PUSH 07/26/17 16:00 (Protonix) 40 mg DAILY PO 07/26/17 16:00 07/28/17 09:23 (Restoril) 15 mg HS PRN PO 07/26/17 21:00 07/27/17 22:19 (Xanax) 0.25 mg TID PRN PO 07/26/17 16:00 07/26/17 18:43 (Vasotec Inj) 1.25 mg Q4H PRN IV 07/26/17 16:00 (Lipitor) 10 mg HS PO 07/26/17 21:00 07/27/17 21:10 (NovoLOG SUPPLEMENTAL SCALE) 1 ACHS SQ 07/26/17 17:00 (D50w (Vial) Inj) 50 ml UNSCH PRN IV PUSH 07/26/17 16:00 (Glucagon Inj) 1 mg UNSCH PRN OTHER 07/26/17 16:00 (Prinivil) 5 mg DAILY PO 07/26/17 16:00 07/28/17 09:23 (Lopressor) 25 mg BID PO 07/27/17 21:00 07/28/17 09:23 Exam I&O / VS Vital Signs Date Time Temp Pulse Resp B/P (MAP) Pulse Ox O2 Delivery O2 Flow Rate FiO2 07/28/17 09:26 98.6 69 16 159/109 (126) 94 07/28/17 04:00 97.4 68 16 146/97 (113) 97 07/28/17 00:00 97.7 66 18 153/107 (122) 98 07/27/17 20:15 96 21 07/27/17 20:00 97.6 74 16 162/90 (114) 95 07/27/17 20:00 73 07/27/17 16:00 69 07/27/17 16:00 96.7 77 18 155/105 (122) 96 General: Alert and Oriented, No acute distress Eye: EOMI, Normal conjuctiva Neurologic: Alert, Oriented, Normal sensory, Normal motor, No focal defects, CN II-XII intact Psychiatric: Cooperative, Appropriate mood & affect Exam Comments ox 3, eomi, ou 3-2mm, no pad, no drift, pin nml in all 4 ext, no dystaxia, mild left hyper-reflexia Review/Management Diagnosis/Plan: (1) Acute right MCA stroke ICD Codes: I63.511 - Cerebral infarction due to unspecified occlusion or stenosis of right middle cerebral artery Status: Acute Plan: mri brain reviewed. looks more like subcortical strokes then ms image shows +dwi changes in the rt subcortical suggestive of ischemia symptoms improved <24 hrs, less suggestive of ms chronic le paresthesias, possible mild le sensory neuropathy 2/2 etoh vs ms/ cord lesion? mra/carotids ok elevated ldl recs aspirin/statin d/c mj. limit eoth bp control will check mri c/t spine to exclude cord lesion for ms, although suspect less likely p.t. (2) HTN (hypertension) ICD Codes: I10 - Essential (primary) hypertension Problem Qualifiers (1) HTN (hypertension): Qualified Codes: I10 - Essential (primary) hypertension Micha Garcia MD Jul 28, 2017 14:46
[2017-07-28] MEDS: ALPRAZolam 0.25 MG TAB PO PRN (16:58)
--- NOTE | 2017-07-28 17:08 | HHI.PR ---
Subjective Remarks deferred entry - patient seen at 11:30 am Patient c/o of burning sensation in feet denies cp/sob Objective Vitals Vital Signs Date Time Temp Pulse Resp B/P (MAP) Pulse Ox O2 Delivery O2 Flow Rate FiO2 07/28/17 15:16 98.8 68 20 152/103 (119) 95 07/28/17 09:26 98.6 69 16 159/109 (126) 94 07/28/17 08:00 69 07/28/17 04:00 97.4 68 16 146/97 (113) 97 07/28/17 00:00 97.7 66 18 153/107 (122) 98 07/27/17 20:15 96 21 07/27/17 20:00 97.6 74 16 162/90 (114) 95 07/27/17 20:00 73 I/O 07/27/17 07/27/17 07/27/17 07/28/17 07/28/17 07/28/17 07:00 15:00 23:00 07:00 15:00 23:00 Intake Total 840 ml 1360 ml Balance 840 ml 1360 ml Intake Oral 840 ml 360 ml IV Total 1000 ml # Voids 2 5 3 # Bowel Movements 0 2 Result Diagram: 07/27/17 0645 07/27/17 0645 Imaging Last Impressions Myocardial Perfusion Scan Nuc Med 07/27/17 0600 Signed Impressions: Service Date/Time: Thursday, July 27, 2017 10:13 - CONCLUSION: Negative for stress-induced ischemia. RISK CATEGORY: Low (<1%% Annual Mortality Rate) Maciej Gomez MD FACR Head Magnetic Resonance Angiography 07/27/17 0000 Signed Impressions: Service Date/Time: Thursday, July 27, 2017 15:02 - CONCLUSION: Negative for major branch vessel occlusion.. Maciej Gomez MD FACR Brain MRI 07/27/17 0000 Signed Impressions: Service Date/Time: Thursday, July 27, 2017 15:02 - CONCLUSION: The ventricular white matter changes consisting of small focal areas of high signal intensity without hemorrhage. Demyelinating process could have this similar appearance. Maciej Gomez MD FACR Chest X-Ray 07/26/17 1007 Signed Impressions: Service Date/Time: Wednesday, July 26, 2017 10:22 - CONCLUSION: No acute disease. Dami Vo MD Head CT 07/26/17 0000 Signed Impressions: Service Date/Time: Wednesday, July 26, 2017 10:31 - CONCLUSION: Small areas of low density at the right anterior limb of the internal capsule and right centrum semiovale. Recent small infarcts could have this appearance. No hemorrhage or significant mass effect is seen. Dami Vo MD Carotid Artery Ultrasound 07/26/17 0000 Signed Impressions: Service Date/Time: Wednesday, July 26, 2017 17:24 - CONCLUSION: 1. Mild bilateral carotid plaque with resultant mild, less than 50%%, stenosis. 2. Antegrade vertebral artery flow bilaterally. Toribio Crisostomo MD Objective Remarks AAOx3 NAD S1S2 RRR, no MRG soft abdomen, non tender no edema in extremities Procedures None Medications and IVs Current Medications Medications (Trade) Dose Ordered Sig/Jalyn Route Start Time Stop Time Status Last Admin (NS Flush) 2 ml UNSCH PRN IVF 07/26/17 10:15 (NS Flush) 2 ml BID IV FLUSH 07/26/17 21:00 07/28/17 09:23 (NS Flush) 2 ml UNSCH PRN IV FLUSH 07/26/17 16:00 (Aspirin) 325 mg DAILY PO 07/27/17 09:00 07/28/17 10:09 (Nitrostat Sl) 0.4 mg Q5M PRN SL 07/26/17 16:00 (Tylenol) 500 mg Q4H PRN PO 07/26/17 16:00 ([place] 7.5-325 Mg) 1 tab Q4H PRN PO 07/26/17 16:00 (Morphine Inj) 2 mg Q5M PRN IV PUSH 07/26/17 16:00 (Protonix) 40 mg DAILY PO 07/26/17 16:00 07/28/17 09:23 (Restoril) 15 mg HS PRN PO 07/26/17 21:00 07/27/17 22:19 (Xanax) 0.25 mg TID PRN PO 07/26/17 16:00 07/28/17 16:58 (Vasotec Inj) 1.25 mg Q4H PRN IV 07/26/17 16:00 (Lipitor) 10 mg HS PO 07/26/17 21:00 07/27/17 21:10 (NovoLOG SUPPLEMENTAL SCALE) 1 ACHS SQ 07/26/17 17:00 (D50w (Vial) Inj) 50 ml UNSCH PRN IV PUSH 07/26/17 16:00 (Glucagon Inj) 1 mg UNSCH PRN OTHER 07/26/17 16:00 (Prinivil) 5 mg DAILY PO 07/26/17 16:00 07/28/17 09:23 (Lopressor) 25 mg BID PO 07/27/17 21:00 07/28/17 09:23 A/P Problem List: (1) Chest pain ICD Code: R07.9 - Chest pain, unspecified Status: Acute (2) Stroke ICD Code: I63.9 - Cerebral infarction, unspecified Status: Acute (3) Elevated blood pressure reading ICD Code: R03.0 - Elevated blood-pressure reading, without diagnosis of hypertension Status: Acute (4) Numbness and tingling of left arm and leg ICD Code: R20.0 - Anesthesia of skin; R20.2 - Paresthesia of skin Status: Acute (5) Rhabdomyolysis ICD Code: M62.82 - Rhabdomyolysis (6) Abnormal MRI of head ICD Code: R93.0 - Abnormal findings on diagnostic imaging of skull and head, not elsewhere classified (7) CVA (cerebral vascular accident) ICD Code: I63.9 - Cerebral infarction, unspecified Assessment and Plan Chest pain, atypical Patient with increased risk factors to include elevated blood pressure, age, family history of heart disease Continue trending cardiac enzymes and EKGs rule out any acute coronary event Pursue chemical stress test in the a.m. rule out any acute abnormality Start patient on aspirin, metoprolol 12.5 mg twice daily, nitroglycerin as needed, lisinopril 5 mg daily, atorvastatin. Obtain lipid panel for evaluation 07/27 Nuclear stress test negative for stress induced ischemia. CVA Neurological symptoms with headache, numbness, paresthesia of the left side with CT finding of possible recent small infarcts We'll pursue full neurological workup at this time MRI of the brain shows ventricular white matter changes consistent with small focal areas of high signal intensity with a hemorrhage. Demyelinating process could have this appearance. MRI of the head was negative for major branch vessel occlusion. Carotid ultrasound is negative Carotid ultrasound Echocardiogram showed a normal left ventricular size and ejection fraction of 60-65%. Lipomatous atrial septum. Mild mitral valve regurgitation, mild aortic valve regurgitation, mild pulmonary valve regurgitation. Continue monitor telemetry - no evidence registered Patient seen by speech therapy. Recommended regular diet with thin liquids. Patient will not need outpatient speech therapy. PT elevated patient, no PT recommended upon discharge. OT evaluation pending Consult neurology. Given abnormal MRI description and the possibility of demyelinating process I will obtain an MRI of the spine. Continue full dose aspirin, statin. 07/28 Neurology consult pending. Uncontrolled hypertension. Could be secondary to remote CVA Will try to remain permissive at this time, however because of the acute chest pain the patient was started on medications for cardioprotection. 07/28 I will increase the dose to 50 mg by mouth twice a day Hyperglycemia with family history of diabetes Obtain hemoglobin A1cn - 5.3 diabetes ruled out Accu-Cheks with sliding scale insulin Blood sugar seems to be stable. Rhabdomyolysis CK elevated at 268, down to 160 after IV fluid administration. Hyperlipidemia Lipid profile showed a total cholesterol 228 and an LDL cholesterol 157, HDL cholesterol 44.9 and triglycerides 129. Patient has an LDL cholesterol of more than 157. Patient started on Lipitor. Continue. DVT prevention sequential compression devices Discharge Planning Pending neurology evaluation, MRI of the cervical, thoracic and lumbar spine. Problem Qualifiers (1) Chest pain: Qualified Codes: R07.9 - Chest pain, unspecified (2) Stroke: Qualified Codes: I63.9 - Cerebral infarction, unspecified Damion Kiser MD Jul 28, 2017 17:08
[2017-07-28] MEDS: ATORVASTATIN 10 MG TAB PO SCH (21:39)
[2017-07-28] MEDS: METOPROLOL TARTRATE 50 MG TAB PO SCH (21:40)
[2017-07-29] VITALS (7 sets, daily range): BP systolic 142–160; BP diastolic 87–98; PULSE 60–70; RESP 16–20; TEMP 96.9–98.3; O2SAT 94–97
[2017-07-29] MEDS: INSULIN ASPART SUPPLEMENTAL SCALE SQ SCH ×4 (08:00→20:44)
[2017-07-29] MEDS: LISINOPRIL 5 MG TAB PO SCH (08:57)
[2017-07-29] MEDS: PANTOPRAZOLE SOD 40 MG DELAYED RELEASE TAB PO SCH (08:57)
[2017-07-29] MEDS: ASPIRIN 325 MG TAB PO SCH (08:57)
[2017-07-29] MEDS: METOPROLOL TARTRATE 50 MG TAB PO SCH ×2 (08:57→20:44)
[2017-07-29] MEDS: SODIUM CHLORIDE 0.9% FLUSH 10 ML FLUSH IV FLUSH SCH ×2 (08:58→20:43)
--- NOTE | 2017-07-29 13:25 | HHI.PR ---
Subjective Remarks patient seen in follow up for weakness likely due to infarct. Doing well with PT/OT abd pain today Objective Vitals Vital Signs Date Time Temp Pulse Resp B/P (MAP) Pulse Ox O2 Delivery O2 Flow Rate FiO2 07/29/17 09:00 70 07/29/17 08:51 98.2 67 16 160/93 (115) 96 07/29/17 04:00 96.9 67 20 158/95 (116) 94 07/29/17 00:00 97.3 60 20 152/96 (114) 95 07/28/17 20:00 97.6 72 20 142/92 (109) 93 07/28/17 20:00 70 07/28/17 19:46 99.3 75 16 174/102 (126) 95 07/28/17 15:16 98.8 68 20 152/103 (119) 95 I/O 07/28/17 07/28/17 07/28/17 07/29/17 07/29/17 07/29/17 07:00 15:00 23:00 07:00 15:00 23:00 Intake Total 1000 ml 120 ml Balance 1000 ml 120 ml Intake Oral 1000 ml 120 ml # Voids 3 3 6 # Bowel Movements 1 Result Diagram: 07/27/17 0645 07/27/17 0645 Procedures None A/P Problem List: (1) Stroke ICD Code: I63.9 - Cerebral infarction, unspecified Status: Acute Plan: Subcortical, PT/OT efforts MRI spine R/O demyelinating disorder neuro eval appreciated statin asa (2) HTN (hypertension) ICD Code: I10 - Essential (primary) hypertension Plan: uncontrolled, new diagnosis increase lisinopril cont BB (3) Abdominal pain ICD Code: R10.9 - Unspecified abdominal pain Plan: lft's elevated, us pending repeat in am (4) EtOH dependence ICD Code: F10.20 - Alcohol dependence, uncomplicated Plan: patient education provided Discharge Planning likely home in am if stable Problem Qualifiers (1) Stroke: Qualified Codes: I63.9 - Cerebral infarction, unspecified (2) HTN (hypertension): Qualified Codes: I10 - Essential (primary) hypertension Diamond Christianson MD Jul 29, 2017 13:25
[2017-07-29] MEDS ORDERED: GADODIAMIDE PF 287 MG/ML 5 ML VIAL (for RAD MRI) IV PUSH ONE (15:00)
--- NOTE | 2017-07-29 15:28 | RADRPT ---
EXAM DATE/TIME: 07/29/2017 13:56 [facility] COMPARISON: No previous studies available for comparison. INDICATIONS : Multiple sclerosis. CONTRAST: 13 cc Omniscan (gadodiamide) IV MEDICAL HISTORY : CVA SURGICAL HISTORY : Hysterectomy. ENCOUNTER: Subsequent ACUITY: 4-6 days PAIN SCORE: 5/10 LOCATION: Cervical TECHNIQUE: Multiplanar, multisequence MRI examination of the cervical spine was performed. FINDINGS: VERTEBRAE: Normal vertebral body height. Bone marrow signal is within normal limits. ALIGNMENT: No anterolisthesis or retrolisthesis. CORD: Normal configuration and signal. POST FOSSA: The cerebellar tonsils are normal in position. POST-CONTRAST: No abnormal areas of enhancement are seen. Craniocervical junction and C1-C2 level demonstrate no abnormality. C2-C3: No disc herniation, canal stenosis, or neural foraminal stenosis. C3-C4: No disc herniation, canal stenosis, or neural foraminal stenosis. C4-C5: No disc herniation, canal stenosis, or neural foraminal stenosis. C5-C6: There is decreased disc height with small diffuse posterior disc osteophyte complex. No significant s aleida canal stenosis or neural foraminal stenosis is present. C6-C7: There is decreased disc height with small diffuse posterior disc osteophyte complex. No significant s aleida canal stenosis or neural foraminal stenosis is present. C7-T1: No disc herniation, canal stenosis, or neural foraminal stenosis. CONCLUSION: 1. Cervical spinal cord has a normal appearance. No demyelinating lesions are visualized. 2. Degenerative disc disease at C5-C6 and C6-C7. No significant canal stenosis or neural foraminal na rrowing is present. Dami Dong MD on July 29, 2017 at 15:23 Board Certified Radiologist. This report was verified electronically.
[2017-07-29 15:39] LABS: BLOOD, URINE NEG (NEG); GLUCOSE,URINE NEG (NEG); KETONE, URINE NEG (NEG); NITRITE,URINE NEG (NEG); PH, URINE 5.5 (5.0-8.5)
[2017-07-29 15:44] LABS: METHOD OF COLLECTION CLEAN CATCH
[2017-07-29 15:45] LABS: COMMENT (UR) CULT NOT INDICATED; CULTURE IF INDICATED CULT NOT INDICATED; MUCUS URINE FEW /lpf (OCC); RBC, URINE 0-3 /hpf (0-3); URINE COLOR YELLOW (YELLW/STRAW); WBC, URINE 0-2 /hpf (0-5)
--- NOTE | 2017-07-29 16:29 | RADRPT ---
EXAM DATE/TIME: 07/29/2017 13:56 [facility] COMPARISON: No previous studies available for comparison. INDICATIONS : Multiple sclerosis. CONTRAST: 13 cc Omniscan (gadodiamide) IV MEDICAL HISTORY : CVA SURGICAL HISTORY : Hysterectomy. ENCOUNTER: Subsequent ACUITY: 4-6 days PAIN SCORE: 5/10 LOCATION: Thoracic TECHNIQUE: Multiplanar multisequence MRI of the thoracic spine was performed. FINDINGS: VERTEBRA: Normal vertebral body height. Bone marrow signal is normal. There are endplate osteophytes at multipl e levels. ALIGNMENT: No anterolisthesis or retrolisthesis. CORD: Normal configuration and signal. POST CONTRAST: No abnormal areas of contrast enhancement seen. T1-T2: No disc herniation, canal stenosis, or neural foraminal stenosis. T2-T3: No disc herniation, canal stenosis, or neural foraminal stenosis. T3-T4: No disc herniation, canal stenosis, or neural foraminal stenosis. T4-T5: No disc herniation, canal stenosis, or neural foraminal stenosis. T5-T6: No disc herniation, canal stenosis, or neural foraminal stenosis. T6-T7: No disc herniation, canal stenosis, or neural foraminal stenosis. T7-T8: No disc herniation, canal stenosis, or neural foraminal stenosis. T8-T9: No disc herniation, canal stenosis, or neural foraminal stenosis. T9-T10: No disc herniation, canal stenosis, or neural foraminal stenosis. T10-T11: No disc herniation, canal stenosis, or neural foraminal stenosis. T11-T12: No disc herniation, canal stenosis, or neural foraminal stenosis. T12-L1: No disc herniation, canal stenosis, or neural foraminal stenosis. CONCLUSION: Mild degenerative change of the thoracic spine. No spinal cord lesion is visualized. Additionally, th ere is no significant spinal canal stenosis or neural foraminal narrowing. Dami Dong MD on July 29, 2017 at 16:25 Board Certified Radiologist. This report was verified electronically.
[2017-07-29] MEDS: TEMAZEPAM 15 MG CAP PO PRN (20:44)
[2017-07-29] MEDS: ATORVASTATIN 10 MG TAB PO SCH (20:44)
[2017-07-30] VITALS: BP 131/88; PULSE 63; RESP 20; TEMP 96; O2SAT 94
[2017-07-30 07:22] LABS: CHLORIDE 104 MEQ/L (98-107); POTASSIUM 3.6 MEQ/L (3.5-5.1); SODIUM (NA) 141 MEQ/L (136-145)
[2017-07-30 07:26] LABS: ANION GAP 9 MEQ/L (5-15); BICARBONATE 28.3 MEQ/L (21.0-32.0)
[2017-07-30 07:49] LABS: ALKALINE PHOSPHATASE 56 U/L (45-117); ALT (GPT) 96 U/L (10-53); AST (GOT) 107 U/L (15-37); BLOOD UREA NITROGEN 19 MG/DL (7-18); GLOMERULAR FILTRATION RATE 116 ML/MIN (>89)
[2017-07-30 08:00] VITALS: BP 115/76; PULSE 61; RESP 22; TEMP 97.9; O2SAT 98
[2017-07-30] MEDS: INSULIN ASPART SUPPLEMENTAL SCALE SQ SCH ×2 (08:00→12:00)
--- NOTE | 2017-07-30 08:57 | RADRPT ---
EXAM DATE/TIME: 07/29/2017 19:06 [place] COMPARISON: No previous studies available for comparison. INDICATIONS : Increased labs. Flank pain. MEDICAL HISTORY : Hypertension. Weakness. Paresthesia. ETOH dependence. Cerebrovascular accident. SURGICAL HISTORY : Hysterectomy. ENCOUNTER: Initial ACUITY: 1 day PAIN SCORE: 3/10 LOCATION: Bilateral upper quadrant MEASUREMENTS: LIVER: 16.3 cm length COMMON DUCT: 3 mm RIGHT KIDNEY: 12.7 x 5.0 x 4.5 cm LEFT KIDNEY: 12.2 x 4.5 x 5.0 cm SPLEEN: 8.4 cm length AORTA: 2.1cm maximal FINDINGS: Liver is echogenic. Multiple small cysts present in the left lobe measuring up to 1.2 x 1.2 cm, 1.2 x 1 cm and 7 mm x 6 mm. Portal venous flow is normal direction. No gallstones or biliary ductal dilata tion. Kidneys normal in size. Spleen and aorta are unremarkable. No free fluid. Inferior vena cava pa tent. CONCLUSION: 1. Echogenic liver characteristic of fatty infiltration or hepatocellular disease. Multiple small lef t renal cysts. 2. No gallstones or biliary ductal dilatation. Irving Wells MD on July 30, 2017 at 8:52 Board Certified Radiologist. This report was verified electronically.
[2017-07-30] MEDS ORDERED: LISINOPRIL 20 MG TAB PO SCH (09:00)
[2017-07-30] MEDS: SODIUM CHLORIDE 0.9% FLUSH 10 ML FLUSH IV FLUSH SCH (09:15)
[2017-07-30] MEDS: PANTOPRAZOLE SOD 40 MG DELAYED RELEASE TAB PO SCH (09:15)
[2017-07-30] MEDS: METOPROLOL TARTRATE 50 MG TAB PO SCH (09:15)
[2017-07-30] MEDS: ASPIRIN 325 MG TAB PO SCH (09:15)
[2017-07-30 12:00] VITALS: BP 136/85; PULSE 70; RESP 18; TEMP 97.6; O2SAT 94
--- NOTE | 2017-07-30 13:05 | HHI.DCPOC ---
Discharge Care Plan Diagnosis: (1) CVA (cerebral vascular accident) (2) HTN (hypertension) (3) EtOH dependence Goals to Promote Your Health * To prevent worsening of your condition and complications * To maintain your health at the optimal level Directions to Meet Your Goals Take your medications as prescribed Follow your dietary instruction Follow activity as directed Keep your appointments as scheduled Take your immunizations and boosters as scheduled If your symptoms worsen call your PCP, if no PCP go to Urgent Care Center or Emergency Room Smoking is Dangerous to Your Health. Avoid second hand smoke Call the 24-hour hour crisis hotline for domestic abuse at Diamond Christianson MD Jul 30, 2017 13:05
[2017-07-30] MEDS ORDERED: LISI-515 PO (13:07)
[2017-07-30] MEDS ORDERED: LIPI10TA PO (13:07)
[2017-07-30] MEDS ORDERED: METO-309 PO (13:07)
[2017-07-30] MEDS ORDERED: ASPI325T PO (13:07)
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
== END 2017-07-30 14:29 | disposition home or self-care (01) | DRG 65 ==
LOC: PHED 10:00 → PHEDA 11:43 → PH5A 13:09
PROVIDERS: ADMIT Hospitalist; ATTEND Hospitalist
DX: I63.511 Cerebral infarction due to unspecified occlusion or stenosis of right middle cerebral artery (principal); M62.82 Rhabdomyolysis; I11.0 Hypertensive heart disease with heart failure; E78.5 Hyperlipidemia, unspecified; F10.20 Alcohol dependence, uncomplicated; F12.90 Cannabis use, unspecified, uncomplicated; I08.0 Rheumatic disorders of both mitral and aortic valves; I16.0 Hypertensive urgency; Z82.49 Family history of ischemic heart disease and other diseases of the circulatory system; Z83.3 Family history of diabetes mellitus; Z90.710 Acquired absence of both cervix and uterus
CPT/HCPCS: 70450; 70544; 70551; 71010; 72156; 72157; 76700; 78452; 80048; 80053; 80061; 80074; 80307; 81001; 82550; 82552; 82607; 82746; 82948; 83036; 83690; 83735; 84443; 84484; 85025; 85610; 85652; 85730; 86592; 93005; 93017; 93306; 93880; 96360; A9502; A9579; J2785; J7030